=== PATIENT | female | born 1940 | race Caucasian/White ===

== ENCOUNTER 2021-01-25 13:53 | Emergency (ER) | payer MEDICARE, OTHER ==
[~2021-01-25] VITALS: Ht 165.1 cm; Wt 70.5 kg
[2021-01-25] MEDS ORDERED: acetaminophen 325mg tablet PO STA (14:17)
[2021-01-25] MEDS ORDERED: normal saline 1000ML IV soln IV ONE (14:20)
[2021-01-25 15:10] LABS: ALANINE AMINOTRANSFERASE 22 U/L (12-78); ALBUMIN 3.1 G/DL (3.4-5.0); ALBUMIN/GLOBULIN RATIO 0.6 (1.1-1.5); ALKALINE PHOSPHATASE 90 IU/L (46-116); ANION GAP 12 (8-16); ASPARTATE AMINO TRANSFERASE 17 U/L (10-37); BILIRUBIN,TOTAL 0.9 MG/DL (0.1-1.0); BLOOD UREA NITROGEN 22 MG/DL (7-18); BUN/CREATININE RATIO 20.4 (6.6-38.0); CALCIUM 9.1 MG/DL (8.5-10.1); CHLORIDE 104 MMOL/L (99-107); CREATININE 1.08 MG/DL (0.40-0.90); GLUCOSE 114 MG/DL (70-104); POTASSIUM 4.6 MMOL/L (3.5-5.1); SODIUM 139 MMOL/L (135-145); TOTAL CARBON DIOXIDE 23.4 MMOL/L (24-32); eGFR 49 ML/MIN
[2021-01-25 15:32] LABS: BASOPHILS # (AUTO) 0.1 X10'3 (0-0.2); BASOPHILS % (AUTO) 0.5 % (0-1); EOSINOPHILS % (AUTO) 0.1 % (0-6); HEMATOCRIT 37.3 % (35.0-45.0); HEMOGLOBIN 12.1 g/dl (12.0-16.0); LYMPHOCYTES # (AUTO) 0.8 X10'3 (1.1-4.8); LYMPHOCYTES % (AUTO) 6.9 % (21-51); MEAN CORPUSCULAR HEMOGLOBIN 29.4 PG (27.0-31.0); MEAN CORPUSCULAR HGB CONC 32.5 g/dL (33.0-36.5); MEAN CORPUSCULAR VOLUME 90.4 FL (78-98); MONOCYTES # (AUTO) 0.9 X10'3 (0-0.9); MONOCYTES % (AUTO) 7.7 % (2-12); NEUTROPHILS % (AUTO) 84.8 % (42-75); PLATELET COUNT 330 X10'3 (140-440); RED BLOOD COUNT 4.13 X10'6 (4.20-5.60); WHITE BLOOD COUNT 11.8 X10'3 (4.5-11.0)
[2021-01-25 18:40] LABS: CLARITY,URINE CLOUDY (Clear); COLOR,URINE DARK YELLOW (Yellow); GLUCOSE, URINE NEGATIVE (Neg); KETONES,URINE TRACE mg/dl (Neg); NITRITES, URINE NEGATIVE (Neg); OCCULT BLOOD,URINE NEGATIVE (Neg); PROTEIN,URINE 30 mg/dl (Neg); UA COLLECTION TYPE CLN CATCH MIDSTREAM
[2021-01-25 18:41] LABS: LEUKOCYTE ESTERASE ,URINE TRACE (Neg); UROBILINOGEN,URINE 0.2 E.U/dL (0.2-1.0)
[2021-01-25 18:54] LABS: WBC,URINE 20-30 /HPF (0-4)
[2021-01-25 18:55] LABS: BACTERIA,URINE FEW /HPF (Neg); MUCUS STRANDS MODERATE /LPF (Neg); RBC,URINE NONE SEEN /HPF (0-2); SQUAMOUS EPITHELIAL CELL,UR FEW /LPF (FEW)
[2021-01-25] MEDS ORDERED: CefTRIAXone 2gm/D5W 50ml BAG 50 ML IV ONE (19:30)
[2021-01-25 20:17] VITALS: BP 171/80
[2021-01-25] MEDS ORDERED: CEPH-585 PO (21:07)
[2021-02-01] MEDS ORDERED: AMLO10TA13 PO (15:54)
[2021-02-01] MEDS ORDERED: CEPH-585 PO (15:58)
[2021-02-01] MEDS ORDERED: MULT-1085 PO (15:59)
== END 2021-01-25 21:22 | disposition home or self-care (01) ==
LOC: ER 13:54
DX: N39.0 Urinary tract infection, site not specified (principal); Z20.822 Contact with and (suspected) exposure to COVID-19; M25.571 Pain in right ankle and joints of right foot; L03.115 Cellulitis of right lower limb; E78.00 Pure hypercholesterolemia, unspecified; I10 Essential (primary) hypertension
CPT/HCPCS: 36415; 71045; 73610; 73630; 80053; 81001; 83605; 84145; 85025; 87040; 87077; 87088; 87635; 93005; 96361; 96365; 99285; C9803; J0696; J7030

== ENCOUNTER 2021-02-17 11:19 | Emergency (ER) | payer MEDICARE, OTHER ==
[~2021-02-17] VITALS: Ht 165.1 cm; Wt 75.0 kg
[~2021-02-17 11:19] MED LIST: KEP500T PO; LISI2.5T14 PO; MULT-1085 PO
[2021-02-17 11:23] VITALS: BP 140/77
[2021-02-17] MEDS ORDERED: DOXY100C77 PO (11:37)
== END 2021-02-17 11:50 | disposition home or self-care (01) ==
LOC: ER 11:20
DX: L03.115 Cellulitis of right lower limb (principal); M79.671 Pain in right foot; E78.00 Pure hypercholesterolemia, unspecified; I10 Essential (primary) hypertension; Z79.2 Long term (current) use of antibiotics; Z79.899 Other long term (current) drug therapy
CPT/HCPCS: 99283

== ENCOUNTER 2023-05-14 14:45 | Emergency (ER) | payer MEDICARE ==
[~2023-05-14] VITALS: Ht 165.1 cm; Wt 91.9 kg
[2023-05-14 14:58] VITALS: TEMP 98
[2023-05-14 15:42] LABS: BASOPHILS # (AUTO) 0.1 X10'3 (0-0.2); BASOPHILS % (AUTO) 0.8 % (0-1); EOSINOPHILS # (AUTO) 0.2 X10'3 (0-0.9); EOSINOPHILS % (AUTO) 2.1 % (0-6); HEMATOCRIT 38.3 % (35.0-45.0); HEMOGLOBIN 12.6 g/dl (12.0-16.0); LYMPHOCYTES # (AUTO) 1.3 X10'3 (1.1-4.8); LYMPHOCYTES % (AUTO) 16.1 % (21-51); MEAN CORPUSCULAR HEMOGLOBIN 29.1 PG (27.0-31.0); MEAN CORPUSCULAR HGB CONC 32.9 g/dL (33.0-36.5); MEAN CORPUSCULAR VOLUME 88.5 FL (78-98); MEAN PLATELET VOLUME 8.9 FL (7.4-10.4); MONOCYTES # (AUTO) 0.6 X10'3 (0-0.9); MONOCYTES % (AUTO) 7.5 % (2-12); NEUTROPHILS # (AUTO) 6.2 X10'3 (1.8-7.7); NEUTROPHILS % (AUTO) 73.5 % (42-75); PLATELET COUNT 238 X10'3 (140-440); RED BLOOD COUNT 4.33 X10'6 (4.20-5.60); RED CELL DISTRIBUTION WIDTH 13.6 % (11.5-14.5); WHITE BLOOD COUNT 8.4 X10'3 (4.5-11.0)
[2023-05-14 16:09] LABS: ALANINE AMINOTRANSFERASE 28 U/L (12-78); ALBUMIN 3.4 G/DL (3.4-5.0); ALBUMIN/GLOBULIN RATIO 0.8 (1.1-1.5); ALKALINE PHOSPHATASE 82 IU/L (46-116); ANION GAP 7 (8-16); ASPARTATE AMINO TRANSFERASE 21 U/L (10-37); BILIRUBIN,TOTAL 0.4 MG/DL (0.1-1.0); BLOOD UREA NITROGEN 19 MG/DL (7-18); CHLORIDE 105 MMOL/L (99-107); CREATININE 1.12 MG/DL (0.40-0.90); GLUCOSE 97 MG/DL (70-104); POTASSIUM 4.5 MMOL/L (3.5-5.1); SODIUM 140 MMOL/L (135-145); TOTAL CARBON DIOXIDE 28.1 MMOL/L (24-32); TOTAL PROTEIN 7.9 G/DL (6.4-8.2); eCRCL 33 ML/MIN; eGFR 46 ML/MIN
[2023-05-14 16:16] LABS: PRO BRAIN NATRIURETIC PEPTIDE 419 PG/ML (0-450)
[2023-05-14 18:54] LABS: BILIRUBIN,URINE NEGATIVE (Neg); CLARITY,URINE CLOUDY (Clear); COLOR,URINE YELLOW (Yellow); GLUCOSE, URINE NEGATIVE (Neg); KETONES,URINE NEGATIVE (Neg); LEUKOCYTE ESTERASE ,URINE NEGATIVE (Neg); NITRITES, URINE POSITIVE (Neg); OCCULT BLOOD,URINE TRACE-INTACT (Neg); PROTEIN,URINE NEGATIVE (Neg); UROBILINOGEN,URINE 0.2 E.U/dL (0.2-1.0)
[2023-05-14 18:55] LABS: UA COLLECTION TYPE CLN CATCH MIDSTREAM
[2023-05-14 19:01] LABS: BACTERIA,URINE 4+ /HPF (Neg); SQUAMOUS EPITHELIAL CELL,UR MODERATE /LPF (FEW)
[2023-05-14] MEDS ORDERED: cephalexin 250mg capsule PO ONE (20:25)
[2023-05-14] MEDS ORDERED: CEPH-585 PO (21:20)
[2023-05-14 21:31] VITALS: BP 162/82; PULSE 70; O2SAT 98
[2023-05-14 22:33] VITALS: RESP 16
== END 2023-05-14 23:08 | disposition home or self-care (01) ==
LOC: ER 14:46
DX: R30.0 Dysuria (principal); R22.42 Localized swelling, mass and lump, left lower limb; N39.0 Urinary tract infection, site not specified; E78.00 Pure hypercholesterolemia, unspecified; I10 Essential (primary) hypertension; F03.90 Unspecified dementia, unspecified severity, without behavioral disturbance, psychotic disturbance, mood disturbance, and anxiety; Z79.2 Long term (current) use of antibiotics; Z79.899 Other long term (current) drug therapy
CPT/HCPCS: 36415; 71045; 80053; 81001; 83880; 85025; 93005; 99285

== ENCOUNTER 2025-03-31 19:32 | Emergency (ER) | payer MEDICARE ==
[~2025-03-31] VITALS: Ht 162.6 cm; Wt 100.0 kg
[2025-03-31 19:46] VITALS: BP 198/82; PULSE 86; RESP 15; O2SAT 98
[2025-03-31] MEDS ORDERED: LEVO25CA5 PO (19:49)
[2025-03-31] MEDS ORDERED: SPIR50TA5 PO (19:49)
[2025-03-31] MEDS ORDERED: AMOX-117 PO (21:19)
--- NOTE | 2025-03-31 21:19 | Physician Documentation ---
History of Present Illness ~ Chief Complaint: Ear Pain Stated Complaint: L SIDE HEAD PAIN Time Seen by MD: 21:01 Primary Medical Doctor: Price COOPER A 4-year-old female presents to the ED with a complaint of left ear pain. She states the pain is primarily on the external aspect of her left ear which includes her earlobe and auricle. Had any fevers denies changes to her hearing Medication Reconciliation Allergies: Coded Allergies: No Known Allergies (Unverified , 03/31/25) Scheduled Amox Tr/Potassium Clavulanate (Augmentin 875-125 Tablet), 1 TAB PO Q12H Levothyroxine Sodium (Levothyroxine), 1 CAP PO DAILY, (Reported) Spironolactone (Spironolactone), 1 TAB PO DAILY, (Reported) Discontinued Medications Levetiracetam (Keppra), 1 TAB PO Q12H Discontinued Reason: patient no longer taking Lisinopril (Lisinopril), 2.5 MG PO DAILY Discontinued Reason: patient no longer taking Multivitamin (Multi Vitamin Daily), 1 TAB PO DAILY, (Reported) Discontinued Reason: patient no longer taking Past Medical History Past Medical History: Dementia, High Cholesterol, Hypertension, Cellulitis Past Surgical History: noncontributory Alcohol Use: None Drug Use: none Lives In: Home Occupation: retired Review of Systems All Other Systems at this time: Reviewed and Negative ROS As stated above in the HPI, otherwise all systems are reviewed and negative. Physical Exam Vital Signs: Temperature: 96.8, Source: Temporal, Heart Rate: 86, Respiratory Rate: 15, BP: 198/82, Pulse Oximetry: 98, Weight: 100.000 Physical Exam General: Alert, no apparent distress. HEENT: PERRL, EOMI, no injection, moist mucous membranes. swollen left auricla: No inflammation in the external auditory canal or tympanic membrane, no trismus no submandibular swelling Neck: Full range of motion. Respiratory: Lungs clear, no respiratory distress. Chest: No accessory muscle use. Psychiatric: Normal mood and affect. Skin: Normal color, warm and dry. No edema, no ecchymosis. Progress Results/Orders Results/Orders Completed Orders - DEE HARDY NP Amox Tr/Potassium Clavulanate (Augmentin (03/31/25 21:20) Medications Received in ER Medications (Trade) Dose Ordered Sig/Jaz Route PRN Reason Start Time Stop Time Status Last Admin Dose Admin (Augmentin 875-125mg tablet) 1 tab ONCE ONCE PO 03/31/25 21:20 03/31/25 21:21 DC 03/31/25 21:27 1 TAB Vital Signs 03/31/25 03/31/25 19:46 21:22 Temp 96.8 96.8 Pulse 86 Resp 15 B/P (MAP) 198/82 Pulse Ox 98 Medical Decision Making Additional information obtaine: old records Findings Going to treat with oral antibiotics for suspected cellulitis of the left auricle. We will have her follow up in the outpatient setting with the primary care Ear Diff. Dx: Considerations: Include: Abrasion, Cerumen impaction, Foreign body, Otitis externa, Barotrauma, Otitis media, Perforation, Referred pain- dental, Referred pain-pharyngitis, Referred pain-sinusitis, Referred pain-TMJ syn., Tympanic Membrane Injury, Other Eye Diff. Dx: Considerations: Unlikely: Chalazoin, Conjuctivits-allergic, Conjuctivitis-bacterial, Conjuctivits-chlamydial, Conjuctivitis-viral, Corneal abrasion, Corneal laceration, Corneal ulceration, Foreign body-conjuctiva, Foreign body-corneal, Foreign body-intraocular, Foreign body-lid, Glaucoma, Globe rupture, Hordeolum, Iritis, Orbital cellulitis, Periobital cellulitis, Retinal artery occulsion, Retinal vein occlusion, Rust ring, Subconjunctival hem, Ultraviolet keratitis, Uveitis, Vitreous hemorrhage, Other Nose Diff. Dx: Considerations: Unlikely: Abrasion, Anterior nasal bleed, Avulsion, Contusion, Coagulopathy, Fracture-nasal bone, Fracture-septum, Hypertension, Laceration, Other, Posterior nasal bleed, Retained foreign body, Septal hematoma Tooth Diff. Dx: Considerations: Unlikely: Alveolar fracture, Aveolar osteitis, ANUG, Facial cellulitis, Periapical abscess, Periodontal abscess, Post- extraction bleeding, Pulpitis, Trigeminal neuralgia, Tooth-avulsion, Tooth- eruption, Tooth-fracture, Tooth-subluxation, Other Throat Diff Dx: Considerations: Unlikely: AIDS, Epiglottitis, Esophageal candidiasis, Hand foot mouth disease, Herpangina, Herpetic stomatitis, Herpes simplex, Infection mononucleosis, Immunodeficiency, Bryan's angina, Peritonsillar abscess, Peritonsillar cellulitis, Pharyngitis-diphtheria, Pharyngitis-strepococcal, Pharyngitis-viral, Thrush, URI, Other Departure Disposition: HOME / SELF CARE / HOMELESS Impression: Primary Impression: Cellulitis Condition: Improved Discharge Instructions: Earache, Adult Referrals: NO PRIMARY CARE PROVIDER (PCP) Prescriptions Amox Tr/Potassium Clavulanate (Augmentin 875-125 Tablet) 1 Each Tablet 1 TAB PO Q12H for 10 Days, #20 TAB Prov: DEE HARDY NP 03/31/25 Education Educated: Patient Educated regarding: diagnosis Signature Scribe Signature: f Attestation: Scribed for Dee Hardy Director Oncology by Dee Hardy - ANDERSON . 03/31/25 23:07 DEE HARDY NP Mar 31, 2025 21:19
[2025-03-31 21:22] VITALS: TEMP 96.8
[2025-03-31] MEDS: amox tr/potassium clavulanate 875/125mg TAB PO ONE (21:27)
== END 2025-03-31 21:29 | disposition home or self-care (01) ==
LOC: ER 19:34
DX: H60.12 Cellulitis of left external ear (principal); I10 Essential (primary) hypertension; E78.00 Pure hypercholesterolemia, unspecified; Z79.899 Other long term (current) drug therapy
CPT/HCPCS: 99283